=== PATIENT | female | born 1975 | race Caucasian/White ===

== ENCOUNTER 2018-05-22 07:40 | Day surgery (SDC) | payer OTHER ==
[2018-05-22 08:06] VITALS: BMI 39.4
[2018-05-22 08:08] VITALS: O2SAT 100
[2018-05-22] MEDS ORDERED: Lactated Ringer's 1,000 ML IV ONE (09:30)
[2018-05-22] MEDS ORDERED: Propofol 10 mg/ml Inj (20 ML) ONE (09:36)
[2018-05-22] MEDS ORDERED: Belladonna-Phenobarbital PO STA ×2 (09:38→10:38)
--- NOTE | 2018-05-22 09:38 | CP.SDSHP ---
Same Day Surgery H & P - History Proposed Procedure: EGD Pre-Op Diagnosis: SEE NOTES - Previous Medical/Surgical History Cardiac: Hypertension Endocrine/Metabolic: Diabetes, Other Pain: 4.Moderate Pain - Allergies Allergies: Allergies No Known Allergies Allergy (Verified 06/16/16 08:47) - Physical Exam General Appearance: N Vital Signs: Vital Signs 05/22/18 05/22/18 08:07 08:15 Temperature 97.0 F L 97.0 F L Pulse Rate 74 74 Respiratory 19 19 Rate Blood Pressure 145/28 L 145/28 L O2 Sat by Pulse 100 100 Oximetry Mental Status: Alert & Oriented x3 Neuro: WNL Heart: Other Lungs: WNL GI: Other - {Optional Preform as Required} Breast: WNL Abdomen: Other Rectal: Other Integument: WNL : WNL Ortho: WNL ENT: WNL - Impression Pt. Evaluated Today:Candidate for Anesthesia & Procedure: Yes - Date & Time Time: 09:37 Short Stay Discharge - Short Stay Discharge Admitting Diagnosis/Reason for Visit: DYSPEPSIA Disposition: HOME/ ROUTINE
[2018-05-22 10:14] VITALS: TEMP 97.5
[2018-05-22 11:44] VITALS: BP 116/59; PULSE 64; RESP 12
== END 2018-05-22 11:05 | disposition home or self-care (01) ==
LOC: C.ENDO 07:40
PROVIDERS: ATTEND Specialist
DX: K29.50 Unspecified chronic gastritis without bleeding (principal); K44.9 Diaphragmatic hernia without obstruction or gangrene; B96.81 Helicobacter pylori [H. pylori] as the cause of diseases classified elsewhere
CPT/HCPCS: 43239; 82948; 84703; 88305; 88342; J2704; J7120

== ENCOUNTER 2018-08-05 01:33 | Emergency (ER) | payer OTHER ==
[2018-08-05 01:34] VITALS: BMI 39.4
[2018-08-05 01:50] VITALS: RESP 16; O2SAT 100
[2018-08-05] MEDS ORDERED: Sodium Chloride 0.9% 1,000 ML IV ONE (02:08)
--- NOTE | 2018-08-05 02:23 | C.PDOC ---
History Of Present Illness 43 year old female patient presents to the ER with c/o right-sided lower back flank pain for x3 days. Associated symptoms includes nausea and vomiting. Patient denies diarrhea, dysuria, fever, hematuria and abdominal pain. Patient notes she never had this before. Time Seen by Provider: 08/05/18 01:40 Chief Complaint (Nursing): Abdominal Pain History Per: Patient History/Exam Limitations: no limitations Onset/Duration Of Symptoms: Days (x3) Current Symptoms Are (Timing): Still Present Past Medical History Reviewed: Historical Data, Nursing Documentation, Vital Signs Vital Signs: Last Vital Signs Temp 98.6 F 08/05/18 01:34 Pulse 77 08/05/18 01:34 Resp 16 08/05/18 01:34 BP 153/96 H 08/05/18 01:34 Pulse Ox 100 08/05/18 01:34 - Medical History PMH: HTN, Hypercholesterolemia Surgical History: Back Surgery Family History: States: No Known Family Hx - Social History Hx Alcohol Use: No Hx Substance Use: No - Immunization History Hx Tetanus Toxoid Vaccination: No Hx Influenza Vaccination: No Review Of Systems Constitutional: Negative for: Fever Gastrointestinal: Positive for: Nausea, Vomiting. Negative for: Abdominal Pain Genitourinary: Negative for: Dysuria, Hematuria Musculoskeletal: Positive for: Back Pain (right-sided lower flank pain ) Physical Exam - Physical Exam Appears: Non-toxic, No Acute Distress, Other (uncomfortable; mildly in pain) Skin: Normal Color, Warm, Dry, No Rash Head: Normacephalic Eye(s): bilateral: Normal Inspection, EOMI Chest: Symmetrical, No Deformity Cardiovascular: Rhythm Regular Respiratory: Normal Breath Sounds Gastrointestinal/Abdominal: Soft, No Tenderness Back: CVA Tenderness (right flank and L spine ) Extremity: Normal ROM (x4) Neurological/Psych: Oriented x3, Normal Speech ED Course And Treatment - Laboratory Results Result Diagrams: 08/05/18 02:20 08/05/18 02:20 O2 Sat by Pulse Oximetry: 100 (RA) Pulse Ox Interpretation: Normal - CT Scan/US CT Abd&pelvis Other Rad Studies (CT/US): Read By Radiologist, Radiology Report Reviewed CT/US Interpretation: Name:FLAVIO WEBER Exam Date:Aug 05, 2018 2:50:43 AM EDT. Modality Type:CT\SR. Description:CT - ABDOMEN AND PELVIS STONE PROTOCOL. Gender:F Laterality:Not ap plicable. :71 Referring Physician:PURA SOTELO MD. EXAM: CT Abdomen and Pelvis Without IV Contrast, Renal Stone Protocol. CLINICAL HISTORY: Right flank pain. TECHNIQUE: Axial computed tomography images of the abdomen and pelvis without intravenous contrast according to a renal stone protocol. CONTRAST: No IV contrast. COMPARISON: None provided. FINDINGS: LUNG BASES: The lung bases appear clear. No pleural effusions are seen. LIVER: There is diffuse hepatic hypoattenuation compatible with fatty infiltration. The liver is enlarged, 25 cm. GALLBLADDER AND BILE DUCTS: The gallbladder appears unremarkable. No radioopaque gallstones are seen. No biliary ductal dilatation is evident. PANCREAS: Unremarkable. SPLEEN: The spleen is normal in size without focal lesion. ADRENAL GLANDS: There is a 3 x 1.8 cm right adrenal nodule is noted demonstrating 30 HU may represent a lipid poor adenoma, however further work up with MRI adrenal protocol is recommended. KIDNEYS, URETERS, AND BLADDER: No hydronephrosis, hydroureter, or urinary calculi seen. The urinary bladder appears within normal limits. STOMACH AND BOWEL: No wall thickening. No CT evidence of colitis or acute diverticulitis. No evidence of bowel obstruction. APPENDIX: No evidence of acute appendicitis on CT examination. PERITONEUM: No free fluid. No free air. LYMPH NODES: No lymphadenopathy is evident. REPRODUCTIVE: IUD is in place. 3 cm left ovarian cyst is seen. The uterus and ovaries are WNL. VASCULATURE: No abdominal aortic aneurysm. BONES: No aggressive appearing osseous lesions. No acute fracture is evident. IMPRESSION: 1. Fatty liver. The liver is enlarged, 25 cm. 2. 3 x 1.8 cm right adrenal nodule is noted demonstrating 30 HU may represent a lipid poor adenoma, however further work up with MRI adrenal protocol is recommended. 3. IUD is in place. 3 cm left ovarian cyst Progress Note: Impression: right sided lower flank pain. Plans: -- CT abd and plevis. -- chem labs. -- blood work. -- glucose POC. -- IV fluids. -- toradol. -- HCG. -- UA. Reassess: On reassessment, patient is resting comfortably, with improvement of back pain. Patient remains afebrile, with no bony tenderness, extremity numbness or weakness, or abdominal pain. Patient is ambulatory in the emergency department with no signs of discomfort. Patient was advised to follow up with physician in 1-2 days. Disposition Counseled Patient/Family Regarding: Studies Performed, Diagnosis, Need For Followup, Rx Given - Disposition Referrals: Deanna Florentino MD [Staff Provider] - Disposition: HOME/ ROUTINE Disposition Time: 06:00 Condition: STABLE Additional Instructions: FOLLOW UP WITH YOUR DOCTOR IN 1-2 DAYS USE MEDICATION NEEDED FOR PAIN - FLEXERIL CAN MAKE YOUR DROWSY RETURN TO ER IF YOUR SYMPTOMS WORSEN Prescriptions: Cyclobenzaprine [Flexeril] 10 mg PO BID PRN #15 tab PRN Reason: Muscle Spasm Naproxen 375 mg PO BID PRN #20 tablet PRN Reason: pain Instructions: Low Back Pain (DC) Forms: [employer] (Serbian) Print Language: WOLOF - Clinical Impression Clinical Impression: Adrenal nodule, Fatty liver, Right low back pain - Scribe Statement The provider has reviewed the documentation as recorded by the [place] Do Provider Attestation: All medical record entries made by the Maddiibvlema were at my direction and personally dictated by me. I have reviewed the chart and agree that the record accurately reflects my personal performance of the history, physical exam, medical decision making, and the department course for this patient. I have also personally directed, reviewed, and agree with the discharge instructions and disposition.
[2018-08-05 02:25] LABS: BASO % 0.5 % (0.0-2.0); EOS % 0.2 % (0.0-4.0); HEMOGLOBIN 12.9 g/dL (11.0-16.0); LYMPH # 1.4 K/uL (1.0-4.3); LYMPH % 13.7 % (20.0-40.0); MEAN CELL VOLUME 99.1 fL (81.0-99.0); MEAN CORPUSCULAR HGB CONC 33.3 g/dL (33.0-37.0); MEAN PLATELET VOLUME 12.2 fL (7.2-11.7); MONO % 9.2 % (0.0-10.0); NEUT % 76.4 % (50.0-75.0); RBC 3.92 Mil/uL (3.80-5.20); RED CELL DISTRIBUTION WIDTH 14.7 % (11.5-14.5); WHITE BLOOD COUNT 10.5 K/uL (4.8-10.8)
[2018-08-05 02:26] LABS: SQUAMOUS EPITHIAL 3 /hpf (0-5); URINE BILIRUBIN NEGATIVE (NEGATIVE); URINE BLOOD 1+ (NEGATIVE); URINE CLARITY Clear (Clear); URINE COLOR Yellow (YELLOW); URINE GLUCOSE (UA) 3+ mg/dL (Normal); URINE LEUKOCYTE ESTERASE NEG Leu/uL (Negative); URINE PROTEIN 1+ mg/dL (NEGATIVE); URINE UROBILINOGEN NORMAL mg/dL (0.2-1.0)
[2018-08-05 02:33] LABS: ALB/GLOB RATIO 1.1 (1.0-2.1); ALBUMIN 3.8 g/dL (3.5-5.0); ALT/SGPT 26 U/L (9-52); AST/SGOT 19 U/L (14-36); BLOOD UREA NITROGEN 17 mg/dL (7-17); CALCIUM 9.4 mg/dl (8.6-10.4); GFR NON-AFRICAN AMERICAN > 60; LIPASE 199 U/L (23-300)
[2018-08-05 02:34] LABS: HCG,QUALITATIVE URINE NEGATIVE (NEGATIVE)
[2018-08-05] MEDS ORDERED: Morphine 4 MG/ML VIAL ONE (04:20)
[2018-08-05 06:11] VITALS: BP 134/78; PULSE 69; TEMP 98.1
--- NOTE | 2018-08-05 10:52 | CT ---
PROCEDURE: CT Abdomen and Pelvis without Oral or IV contrast. HISTORY: RIGHT FLANK PAIN R/O KIDNEY STONE COMPARISON: None available. TECHNIQUE: Contiguous axial images of the abdomen and pelvis. No oral or IV contrast administered. Coronal and Sagittal reformats generated and reviewed. Radiation dose: Total exam DLP = 1099.52 mGy-cm. This CT exam was performed using one or more of the following dose reduction techniques: Automated exposure control, adjustment of the mA and/or kV according to patient size, and/or use of iterative reconstruction technique. FINDINGS: There is limited evaluation of the solid organs without the administration of IV contrast. LOWER THORAX: No visible consolidation, pleural effusion, or pneumothorax. LIVER: Unremarkable. Hepatomegaly. GALLBLADDER AND BILE DUCTS: Unremarkable. PANCREAS: Unremarkable. SPLEEN: Unremarkable. ADRENALS: 1.7 x 3.0 cm right adrenal gland mass measures approximately 33 HU, indeterminate. The left adrenal gland appears unremarkable. KIDNEYS AND URETERS: No hydronephrosis or obstructing renal calculus. BLADDER: The urinary bladder appears unremarkable. REPRODUCTIVE: Uterus is present. IUD. 3 cm probable left ovarian cyst. APPENDIX: The appendix is not identified. No secondary signs of acute appendicitis. BOWEL: The stomach is nondistended. Lack of oral contrast limits evaluation for bowel pathology. The bowel loops appear within normal limits of caliber without evidence of intestinal obstruction. PERITONEUM: No significant free fluid. No definite free air. LYMPH NODES: No bulky lymphadenopathy identified. VASCULATURE: No aortic aneurysm. BONES: No acute osseous abnormality is detected. OTHER FINDINGS: None. IMPRESSION: 1.7 x 3.0 cm right adrenal gland nodule, indeterminate. Dedicated cross-sectional imaging recommended for further characterization. Hepatomegaly. IUD. 3 cm left ovarian cyst. Pelvic ultrasound may be considered for further evaluation. Preliminary impression was provided by [employer]
== END 2018-08-05 05:55 | disposition home or self-care (01) ==
LOC: C.ER 01:33
DX: E27.8 Other specified disorders of adrenal gland (principal); K76.0 Fatty (change of) liver, not elsewhere classified; M54.5 Low back pain
CPT/HCPCS: 74176; 80053; 81001; 82948; 83690; 84703; 85025; 96361; 96374; 96375; 99284; J1885; J2270; J7030

== ENCOUNTER 2019-01-02 18:15 | Emergency (ER) | payer OTHER | END 2019-01-03 01:17 | disposition home or self-care (01) | LOC: C.ER 01-03 01:17 ==

== ENCOUNTER 2019-03-02 21:02 | Emergency (ER) | payer OTHER ==
[2019-03-02 21:02] VITALS: BMI 39.4
[2019-03-02 21:16] VITALS: O2SAT 99
[2019-03-02] MEDS ORDERED: Sodium Chloride 0.9% 1,000 ML IV ONE (21:27)
[2019-03-02 21:35] LABS: BASO % 0.6 % (0.0-2.0); EOS # 0.1 K/uL (0.0-0.7); EOS % 0.9 % (0.0-4.0); HEMOGLOBIN 12.9 g/dL (11.0-16.0); LYMPH # 1.7 K/uL (1.0-4.3); LYMPH % 25.6 % (20.0-40.0); MEAN CELL VOLUME 93.5 fL (81.0-99.0); MEAN CORPUSCULAR HEMOGLOBIN 31.3 pg (27.0-31.0); MEAN CORPUSCULAR HGB CONC 33.5 g/dL (33.0-37.0); MEAN PLATELET VOLUME 12.5 fL (7.2-11.7); MONO # 0.5 K/uL (0.0-0.8); MONO % 7.6 % (0.0-10.0); NEUT # 4.4 K/uL (1.8-7.0); NEUT % 65.3 % (50.0-75.0); NRBC % 0.1 % (0.0-2.0); PLATELET COUNT 115 K/uL (130-400); RBC 4.13 Mil/uL (3.80-5.20); RED CELL DISTRIBUTION WIDTH 15.2 % (11.5-14.5); WHITE BLOOD COUNT 6.8 K/uL (4.8-10.8)
[2019-03-02] MEDS ORDERED: Sodium Chloride 0.9% 1,000 ML ONE (21:35)
[2019-03-02 21:50] LABS: ALB/GLOB RATIO 0.9 (1.0-2.1); ALBUMIN 3.8 g/dL (3.5-5.0); ALT/SGPT 25 U/L (9-52); AST/SGOT 48 U/L (14-36); BLOOD UREA NITROGEN 3 mg/dL (7-17); CALCIUM 9.6 mg/dl (8.6-10.4); GFR NON-AFRICAN AMERICAN > 60; LIPASE 68 U/L (23-300)
--- NOTE | 2019-03-02 22:20 | C.PDOC ---
History Of Present Illness 43-year-old female presents to the emergency department with family for persistent vomiting today, blood streaked. Patient states that she typically vomit 1 to 3 times per day since her gastric bypass surgery in October 2018, at [facility]. Patient states that her max weight was 285 pounds and is now down to 200 pounds. Patient is not taking hypertension or diabetes medications because she cannot tolerate them. Patient is not taking PPI as prescribed. Denies . Time Seen by Provider: 03/02/19 21:21 Chief Complaint (Nursing): Abdominal Pain History Per: Patient History/Exam Limitations: no limitations Onset/Duration Of Symptoms: Hrs Current Symptoms Are (Timing): Still Present Associated Symptoms: Vomiting. denies: Fever, Chills Past Medical History Reviewed: Historical Data, Nursing Documentation, Vital Signs Vital Signs: Last Vital Signs Temp 99.5 F 03/02/19 21:12 Pulse 88 03/02/19 21:12 Resp 18 03/02/19 21:12 BP 123/78 03/02/19 21:12 Pulse Ox 99 03/02/19 21:12 Primary Care Provider: Deanna Florentino - Medical History PMH: HTN, Hypercholesterolemia Denies: Fractures, Chronic Kidney Disease Surgical History: Back Surgery Family History: States: No Known Family Hx - Social History Hx Alcohol Use: No Hx Substance Use: No - Immunization History Hx Tetanus Toxoid Vaccination: No Hx Influenza Vaccination: No Hx Pneumococcal Vaccination: No Review Of Systems Except As Marked, All Systems Reviewed And Found Negative. Constitutional: Negative for: Fever, Chills Cardiovascular: Negative for: Chest Pain Respiratory: Negative for: Cough, Shortness of Breath Gastrointestinal: Positive for: Vomiting. Negative for: Nausea, Abdominal Pain, Diarrhea Physical Exam - Physical Exam Appears: Non-toxic, In Acute Distress (mild distress), Other (prostrate) Skin: Normal Color, Warm, Dry Head: Atraumatic, Normacephalic Eye(s): bilateral: Normal Inspection, PERRL, EOMI Nose: Normal Oral Mucosa: Moist Neck: Normal, Supple Chest: Symmetrical, No Tenderness Cardiovascular: Rhythm Regular, No Murmur Respiratory: Normal Breath Sounds, No Rales, No Rhonchi, No Wheezing Gastrointestinal/Abdominal: Soft, No Tenderness, No Distention, No Guarding, No Rebound, Other (well-healed surgical scars) Extremity: Normal ROM Neurological/Psych: Oriented x3, Normal Speech, Normal Cognition ED Course And Treatment - Laboratory Results Result Diagrams: 03/02/19 21:33 03/02/19 21:33 Lab Results: Total Bilirubin 0.9 mg/dL (0.2-1.3) 03/02/19 21:33 AST 48 U/L (14-36) H 03/02/19 21:33 ALT 25 U/L (9-52) 03/02/19 21:33 Alkaline Phosphatase 91 U/L (38-126) 03/02/19 21:33 Total Protein 7.8 g/dL (6.3-8.3) 03/02/19 21:33 Albumin 3.8 g/dL (3.5-5.0) 03/02/19 21:33 Globulin 4.0 gm/dL (2.2-3.9) H 03/02/19 21:33 Albumin/Globulin Ratio 0.9 (1.0-2.1) L 03/02/19 21:33 Lipase 68 U/L (23-300) 03/02/19 21:33 Lab Interpretation: Normal O2 Sat by Pulse Oximetry: 99 (RA) Pulse Ox Interpretation: Normal Reevaluation Time: 22:46 Reassessment Condition: Improved Medical Decision Making Medical Decision Making: Plan: Chemistry Bloodwork XR Obs Series Glucose POC Pepcid 20mg IVP NaCl IV Fluids Zofran 4mg IVP HCG Qualitative Urine Urinalysis scant blood tinged vom c/w persistent vomitng and gastritis s/p GBP non-compliant with PPI's/Zofran stable hgb Depression emigrated to [place] 15 yrs ago going to [place] for vacation next month already addressed w Dr. Florentino. Disposition Doctor Will See Patient In The: Office Counseled Patient/Family Regarding: Studies Performed, Diagnosis - Disposition Referrals: Deanna Florentino MD [Primary Care Provider] - Disposition: HOME/ ROUTINE Disposition Time: 22:49 Condition: GOOD Forms: [employer] (Sinhala) - Clinical Impression Clinical Impression: Vomiting - Scribe Statement The provider has reviewed the documentation as recorded by the Scribe (Maxwell Monet) Provider Attestation: All medical record entries made by the Scribe were at my direction and personally dictated by me. I have reviewed the chart and agree that the record accurately reflects my personal performance of the history, physical exam, medical decision making, and the department course for this patient. I have also personally directed, reviewed, and agree with the discharge instructions and dis position.
[2019-03-02 22:30] LABS: HCG,QUALITATIVE URINE NEGATIVE (NEGATIVE)
[2019-03-02 22:35] LABS: SQUAMOUS EPITHIAL 30 /hpf (0-5); URINE BACTERIA OCC (<OCC); URINE BILIRUBIN NEGATIVE (NEGATIVE); URINE BLOOD 1+ (NEGATIVE); URINE CLARITY Hazy (Clear); URINE COLOR Yellow (YELLOW); URINE GLUCOSE (UA) NORMAL (Normal); URINE LEUKOCYTE ESTERASE TRACE Leu/uL (Negative); URINE PROTEIN 1+ mg/dL (NEGATIVE)
[2019-03-02 22:58] VITALS: BP 121/93; PULSE 79; RESP 16; TEMP 98.6
--- NOTE | 2019-03-03 15:39 | RAD ---
Date of service: 03/02/2019 PROCEDURE: Radiographs of the chest and abdomen (obstructive series) HISTORY: abd pain COMPARISON: No prior. TECHNIQUE: AP radiograph of the chest, with upright and supine radiographs of the abdomen. 3 views obtained. FINDINGS: CHEST: Lungs: Minor bibasilar atelectasis. Note made Cardiovascular: Normal size heart. No pulmonary vascular congestion. No aortic atherosclerotic calcification present Pleura: No pleural fluid. No pneumothorax. Other findings: None. ABDOMEN AND PELVIS: Bowel: Multiple nondistended air-filled loops of small bowel are present suggestive of ileus. No evidence of acute mechanical bowel obstruction... Note made of multiple metallic clips in the left abdomen. Clinical correlation with history recommended. Free air: None. Bones: Apparent bilateral laminectomy defect at the L5-S1 level. Other findings: In situ copper T IUD IMPRESSION: Minor bibasilar atelectasis. Findings suggest a minor ileus. No evidence of acute mechanical bowel obstruction.
== END 2019-03-02 22:57 | disposition home or self-care (01) ==
LOC: C.ER 21:02 → SUPCPDRO 21:02 → C.ER 22:57
DX: R11.10 Vomiting, unspecified (principal); E78.00 Pure hypercholesterolemia, unspecified; I10 Essential (primary) hypertension
CPT/HCPCS: 74022; 80053; 81001; 82948; 83690; 84703; 85025; 96361; 96374; 96375; 99285; J2405; J7030